=== PATIENT | male | born 1960 | race Caucasian/White ===

== ENCOUNTER 2024-08-03 17:09 | Observation (INO) | payer OTHER ==
[~2024-08-03] VITALS: Ht 165.1 cm; Wt 84.0 kg
[~2024-08-03 17:09] MED LIST: ACET500; AMOX500 PO; ASPI325B; BP MED; CEPH500 PO; HYDACE5; HYDACE5 PO; HYDACE5325 PO; NAPR500 PO; PENVK500 PO; Prilosec40 MG PO
[2024-08-03] MEDS ORDERED: Diphth,Pertuss(Acell),Tet Vac 0.5 ML VIAL IM ONE (17:45)
[2024-08-03] MEDS ORDERED: Methocarbamol 500 MG Tab PO ONE (17:45)
[2024-08-03] MEDS ORDERED: Lactated Ringer's 1,000 ML IV ONE (17:45)
[2024-08-03] MEDS ORDERED: OxyCODONE HCL 5 MG TAB PO ONE (17:45)
[2024-08-03 18:08] LABS: BASOPHILS ABSOLUTE AUTO 0.03 K/mm3 (0.00-0.23); BASOPHILS PERCENT AUTO 0 % (0-2); EOSINOPHILS ABSOLUTE AUTO 0.06 K/mm3 (0.00-0.68); EOSINOPHILS PERCENT AUTO 1 % (0-6); Hematocrit 40.3 % (37.0-53.0); IMMATURE GRAN PERCENT AUTO 1 % (0-1); LYMPHOCYTES ABSOLUTE AUTO 1.69 K/mm3 (0.84-5.20); LYMPHOCYTES PERCENT AUTO 16 % (21-46); MONOCYTES ABSOLUTE AUTO 0.72 K/mm3 (0.16-1.47); MONOCYTES PERCENT AUTO 7 % (4-13); Mean Corpuscular HGB 31.1 pg (26.0-34.0); Mean Corpuscular HGB Conc 34.7 g/dL (31.5-36.5); Mean Corpuscular Volume 90 fL (80-100); Mean Platelet Volume 9.3 fL (9.1-12.4); NEUTROPHILS ABSOLUTE AUTO 8.12 K/mm3 (1.96-9.15); NEUTROPHILS PERCENT AUTO 76 % (41-73); Platelet Count 236 K/mm3 (150-400); RDW Coefficient Variation 12.4 % (11.7-14.2); RDW Standard Deviation 41.2 fL (35.1-46.3); White Blood Cell Count 10.72 K/mm3 (4.00-11.30)
[2024-08-03 18:25] LABS: International Normalized Ratio 0.99; Prothrombin Time Results 10.6 Sec (9.7-11.5)
[2024-08-03 18:38] LABS: Albumin, Blood 3.8 g/dL (3.4-5.0); Albumin/Globulin Ratio 1.1 (0.8-1.8); Bilirubin, Total 0.4 mg/dL (0.1-1.0); Bun/Creatinine Ratio 19.9 (12.0-20.0); Calcium, Blood 9.1 mg/dL (8.5-10.1); Creatinine, Blood 0.95 mg/dL (0.60-1.20); Globulin, Blood 3.4 g/dL (2.2-4.0); Potassium, Blood 4.2 mmol/L (3.5-5.5); Total Protein, Blood 7.2 g/dL (6.4-8.2)
[2024-08-03] MEDS ORDERED: Lisinopril2.5 MG PO (18:59)
[2024-08-03] MEDS ORDERED: OxyCODONE HCL 5 MG TAB PO PRN (19:50)
[2024-08-03] MEDS ORDERED: FLU VACC TS2024-25(6MOS UP)/PF 45 MCG/0.5 ML SYRINGE IM SCH (19:50)
[2024-08-03] MEDS ORDERED: TraMADol HCl 50 MG Tab PO PRN (19:50)
[2024-08-03] MEDS ORDERED: Acetaminophen 325 MG TABLET PO PRN (19:50)
[2024-08-03] MEDS ORDERED: Ondansetron HCl 2 MG / ML 2ML Vial IV PRN (19:50)
[2024-08-03] MEDS ORDERED: Docusate Sodium 100 MG Cap PO SCH (21:00)
[2024-08-03 22:24] VITALS: BP 174/92
[2024-08-04] VITALS (8 sets, daily range): BP systolic 124–162; BP diastolic 79–96
[2024-08-04 01:46] LABS: Source, Urine Clean Catch
[2024-08-04 01:50] LABS: Bilirubin, Urine Neg (Neg); Blood, Urine 1+ (Neg); Glucose Qualitative, Urine 2+ (Neg); Ketones, Urine Neg (Neg); Leukocyte Esterase, Urine Neg (Neg); Nitrite, Urine Neg (Neg); Protein, Urine Neg (Neg); Urobilinogen, Urine NORM (Normal); pH, Urine 6.5 (5.0-8.0)
[2024-08-04 01:52] LABS: Appearance, Urine Clear (Clear); Color, Urine Yellow (P-Yellow)
[2024-08-04 01:57] LABS: Bacteria Not Seen /hpf; Red Blood Cells, Urine 0-2 /hpf (0-2); Squamous Epithelial Cells Not Seen /hpf (Few); White Blood Cells, Urine Not Seen /hpf (0-5)
--- NOTE | 2024-08-04 04:37 | NUR ---
SHIFT SUMMARY NO ACUTE CHANGES THROUGHOUT SHIFT. PAIN MANAGED PER EMAR, REPOSITIONING AND ICE THERAPY. NPO AFTER MIDNIGHT. IVF SL. IS VOIDING WITH URINAL. PT CURRENTLY RESTING IN BED WITH EYES CLOSED AND CALL LIGHT IN REACH. WLL REPORT TO COMING RN
[2024-08-04 04:41] LABS: BASOPHILS ABSOLUTE AUTO 0.02 K/mm3 (0.00-0.23); BASOPHILS PERCENT AUTO 0 % (0-2); EOSINOPHILS ABSOLUTE AUTO 0.01 K/mm3 (0.00-0.68); EOSINOPHILS PERCENT AUTO 0 % (0-6); Hemoglobin 13.8 g/dL (13.5-17.5); IMMATURE GRAN ABSOLUTE AUTO 0.04 K/mm3 (0.00-0.10); IMMATURE GRAN PERCENT AUTO 0 % (0-1); LYMPHOCYTES ABSOLUTE AUTO 1.71 K/mm3 (0.84-5.20); LYMPHOCYTES PERCENT AUTO 18 % (21-46); MONOCYTES ABSOLUTE AUTO 1.05 K/mm3 (0.16-1.47); MONOCYTES PERCENT AUTO 11 % (4-13); Mean Corpuscular HGB 31.4 pg (26.0-34.0); Mean Corpuscular HGB Conc 35.4 g/dL (31.5-36.5); Mean Corpuscular Volume 89 fL (80-100); Mean Platelet Volume 9.3 fL (9.1-12.4); NEUTROPHILS ABSOLUTE AUTO 6.69 K/mm3 (1.96-9.15); NEUTROPHILS PERCENT AUTO 70 % (41-73); Platelet Count 200 K/mm3 (150-400); RDW Coefficient Variation 12.7 % (11.7-14.2); RDW Standard Deviation 41.5 fL (35.1-46.3); White Blood Cell Count 9.52 K/mm3 (4.00-11.30)
[2024-08-04 04:59] LABS: Albumin, Blood 3.5 g/dL (3.4-5.0); Albumin/Globulin Ratio 1.1 (0.8-1.8); Bilirubin, Total 0.5 mg/dL (0.1-1.0); Bun/Creatinine Ratio 20.2 (12.0-20.0); Calcium, Blood 8.9 mg/dL (8.5-10.1); Creatinine, Blood 0.84 mg/dL (0.60-1.20); Globulin, Blood 3.1 g/dL (2.2-4.0); Magnesium, Blood 2.2 mg/dL (1.6-2.4); Potassium, Blood 3.8 mmol/L (3.5-5.5); Total Protein, Blood 6.6 g/dL (6.4-8.2)
--- NOTE | 2024-08-04 19:39 | NUR ---
SHIFT SUMMARY S/P FALL FROM LADDER, A/OX4, VSS, TOLERAATING CLEARS, DISCUSSED CASE WITH GEN SURGERY AND ADMITTING PROIDER WAS ADJUSTED HE IS A TRAUMA, SEEN BY ORTHO AND SPLINT PLACED TO R HAND, ATTEMPTING TO SHIP NORTH FOR HIGHER LEVEL CARE FOR ACETABULAR FX PER MD. NO OTHER EVENTS THIS SHIFT, CALL LIGHT IN REACH.
--- NOTE | 2024-08-04 23:10 | NUR ---
TRANSFER SUMMARY PT TRANSFERRED TO [facility] AT 2310 VIA GURNEY WITH [place]. PT A/OX4, SPLINT TO RIGHT ARM IN PLACE. PAIN MANAGED PER EMAR. VOIDING IND WITH URINAL. TOLERATING PO INTAKE. MAINTAINING BEDREST. PT BELONGINGS SENT PRIOR TO D/C FROM UNIT. REPORT CALLED TO GRECIA AT [facility] FOR ROOM [id number].
[2024-08-05] MEDS ORDERED: Lisinopril 5 MG Tab PO SCH (09:00)
== END 2024-08-04 23:10 | disposition short-term general hospital (02) ==
LOC: ER 17:09 → SURS 17:10
PROVIDERS: Student in an Organized Health Care Education/Training Program; ADMIT Surgery
DX: S52.514A Nondisplaced fracture of right radial styloid process, initial encounter for closed fracture (principal); S52.614A Nondisplaced fracture of right ulna styloid process, initial encounter for closed fracture; S32.501A Unspecified fracture of right pubis, initial encounter for closed fracture; S32.401A Unspecified fracture of right acetabulum, initial encounter for closed fracture; I10 Essential (primary) hypertension; Z79.899 Other long term (current) drug therapy; W11.XXXA Fall on and from ladder, initial encounter
CPT/HCPCS: 36415; 70450; 71260; 73080; 73090; 73110; 73130; 73502; 73552; 74177; 80053; 81001; 83690; 83735; 85025; 85610; 85730; 86850; 86900; 86901; 90471; 90715; 96360-59; 99285-25; A9270; G0378; J7120; Q9967